=== PATIENT | female | born 1965 ===

== ENCOUNTER 2021-02-24 02:10 | Outpatient (CLI) | payer BC, SELFPAY ==
--- NOTE | 2021-02-24 | DI.MRI_ITS ---
Exam(s) MR LOWER JOINT RT WO EXAM: MR LOWER JOINT RT WO CLINICAL HISTORY: RT ANKLE PAIN, M25.571,SWELLING TECHNIQUE: Multiplanar multisequence MRI of the knee was performed. COMPARISON: CR XR ANKLE COMPLETE MIN 3V RT from 01/28/2021 CR XR ANKLE COMPLETE MIN 3V RT from 01/28/2021 FINDINGS: SKIN-SUBCUTANEOUS TISSUES: There is no evidence of skin ulcer nor subcutaneous tract. However, there is subcutaneous edema both sides of the ankle MARROW: There is some marrow edema evident within the medial malleolus. No evidence of marrow edema e vident within the lateral malleolus and talar dome. There is a tiny subarticular degenerative cyst in the medial aspect of the talar dome which measures 2 millimeters. ARTICULATIONS: Difficult to evaluate because of motion but there does appear to be mild degenerative changes in the ankle joint. Subtalar joint appears unremarkable. Small joint effusion in the talonavi cular joint but without obvious degenerative change within this joint. The calcaneocuboid joint appea rs unremarkable. No abnormal intraosseous signal in the midfoot bones. There are no para-articular ga nglion cysts. SINUS TARSI: No loss of normal fat within this space. No interosseous ligament tear evident. No evide nce of sinus tarsi ganglion cyst. LIGAMENTS: Anterior and posterior tibiofibular syndesmotic ligaments appear intact Anterior and posterior talofibular ligaments appear intact Calcaneofibular ligament appears intact Deltoid ligament difficult to assess because of motion artifact PLANTAR FASCIA: Mild thickening and increased signal noted. ACHILLES TENDON: Unremarkable. LATERAL TENDONS: Peroneus longus and brevis tendons appear unremarkable. No tears. No tenosynovitis. Flexor hallucis longus: Intact no tear nor tenosynovitis. MEDIAL TENDONS: Flexor digitorum appears intact Tibialis posterior is abnormal. Exhibits abnormal intrasubstance signal and thickening consistent wit h intrasubstance tearing at and distal to the medial malleolus. IMPRESSION: 1. The main finding here is abnormal thickening and signal abnormality in the tibialis posterior tend on on the medial aspect of the ankle consistent with partial tearing of this structure. There is bone edema evident within the medial malleolus. The adjacent flexor digitorum tendon appears intact. The peroneal tendons on the lateral aspect of the ankle appear intact 2. There is some subcutaneous edema around both size of the lower leg-ankle but no obvious ligament t ears. DATA REPOSITORY:
== END 2021-02-24 02:30 ==
PROVIDERS: PCP Internal Medicine; Visit Provider Internal Medicine
DX: M25.571 Pain in right ankle and joints of right foot (principal); S96.801A Unspecified injury of other specified muscles and tendons at ankle and foot level, right foot, initial encounter; R60.0 Localized edema
CPT/HCPCS: 73721